=== PATIENT | female | born 1970 | race Caucasian/White ===

== ENCOUNTER → 2018-06-29 09:54 | Outpatient (CLI) | payer OTHER, SELFPAY ==
[2018-06-29 10:22] LABS: Add Manual Diff / Slide Review NO; Basophils Absolute Auto 100 /uL (0-100); Basophils Percent Auto 1.4 % (0-2); Eosinophils Absolute Auto 200 /uL (0-450); Eosinophils Percent Auto 4.1 % (2-4); Hematocrit 38.9 % (36-46); Hemoglobin 13.4 g/dL (12.0-16.0); Lymphocytes Absolute Auto 1200 /uL (1100-4500); Mean Corpuscular HGB Conc 34.3 % (30-36); Mean Corpuscular Hemoglobin 32.5 PG (26-34); Mean Corpuscular Volume 94.7 fL (80-100); Monocytes Absolute Auto 300 /uL (0-900); Monocytes Percent Auto 5.6 % (3-14); Neutrophils Absolute Auto 3200 /uL (1500-7000); Neutrophils Percent Auto 63.9 % (50-75); Platelet Count 235 X10^3/uL (150-400); Red Blood Cell Count 4.11 X10^6/uL (4.0-5.2)
[2018-06-29 10:38] LABS: Alanine Aminotransferase 56 IU/L (9-52); Albumin 4.8 g/dL (3.5-5.0); Albumin Globulin Ratio 1.4 (1.0-2.8); Alkaline Phosphatase 51 U/L (38-126); Aspartate Aminotransferase 78 IU/L (14-36); BUN Creatinine Ratio 16.4 (6-22); Bilirubin Total 1.5 mg/dL (0.2-1.3); Blood Urea Nitrogen 23 mg/dL (7-17); Calcium 10.8 mg/dL (8.4-10.2); Carbon Dioxide 34 mmol/L (22-32); Chloride 98 mmol/L (98-107); Estimated Glomerular Filt Rate 40.3 mL/min (>60); Globulin 3.5 g/dL (1.7-4.1); Glucose 87 mg/dL (70-100); HDL Cholesterol 86 mg/dL (40-60); HEMOLYSIS < 15 (0-50); Potassium 4.3 mmol/L (3.4-5.1); Sodium 138 mmol/L (137-145); Total Protein 8.3 g/dL (6.3-8.2); Triglycerides 110 mg/dL (35-150)
[2018-06-29 10:45] LABS: Cholesterol 360 mg/dL (140-199); LDL Cholesterol Calculated 252 mg/dL (<100)
== END ==
PROVIDERS: Visit Provider Family Medicine
DX: E07.9 Disorder of thyroid, unspecified (principal); I63.40 Cerebral infarction due to embolism of unspecified cerebral artery
CPT/HCPCS: 36415; 80053; 80061; 84443; 85025

== ENCOUNTER → 2018-09-28 16:13 | Outpatient (CLI) | payer OTHER, SELFPAY ==
[2018-09-28 18:32] LABS: Calcium 10.8 mg/dL (8.4-10.2)
[2018-09-28 18:51] LABS: Free T4, Direct Thyroxine 0.87 ng/dL (0.78-2.19)
[2018-09-28 19:05] LABS: Thyroid Stimulating Hormone 0.06 uIU/mL (0.47-4.68)
[2018-10-01 17:39] LABS: Parathyroid Hormone Int 34 pg/mL (14-64)
== END ==
PROVIDERS: Visit Provider Family Medicine
DX: E83.52 Hypercalcemia (principal); E07.9 Disorder of thyroid, unspecified
CPT/HCPCS: 36415; 82310; 83970; 84439; 84443

== ENCOUNTER → 2019-06-19 13:16 | Outpatient (CLI) | payer OTHER, SELFPAY ==
[2019-06-22 14:47] LABS: Calcium 10.9 mg/dL (8.6-10.2); Parathyroid Hormone, Intact 116 pg/mL (14-64)
== END ==
PROVIDERS: Visit Provider Family Medicine
DX: E83.52 Hypercalcemia (principal); E07.9 Disorder of thyroid, unspecified
CPT/HCPCS: 36415; 82310; 83970; 84443

== ENCOUNTER → 2019-08-11 11:29 | Outpatient (CLI) | payer OTHER, SELFPAY | PROVIDERS: Referring Provider Family Medicine; Visit Provider Family Medicine | DX: E07.9 Disorder of thyroid, unspecified (principal); E83.52 Hypercalcemia; Z90.09 Acquired absence of other part of head and neck; E21.3 Hyperparathyroidism, unspecified | CPT/HCPCS: 36415; 84443 ==

== ENCOUNTER → 2019-08-16 10:20 | Outpatient (CLI) | payer OTHER, SELFPAY ==
[2019-08-16 11:57] LABS: Calcium 24 Hour Urine 287 mg/day (100-300); Calcium Urine Random 19.8 mg/dL; Collection Time Urine 24 Hours; Total Volume Urine 1450 mL
== END ==
PROVIDERS: PCP Family Medicine; Referring Provider Family Medicine; Visit Provider Family Medicine
DX: E83.52 Hypercalcemia (principal); Z90.09 Acquired absence of other part of head and neck; E21.3 Hyperparathyroidism, unspecified
CPT/HCPCS: 82340

== ENCOUNTER 2020-05-28 15:36 | Emergency (ER) | payer OTHER, SELFPAY ==
[2020-05-28 15:41] VITALS: BP 159/88; PULSE 89; RESP 16; TEMP 36.4; O2SAT 98; BMI 25.8
[2020-05-28 16:01] LABS: COVID19 -Nasal RAPID Negative (Negative)
--- NOTE | 2020-05-28 16:15 | ED.RECABL ---
HPI - Recheck/Abnormal Lab/Rx General Chief Complaint: Recheck/Abnormal Lab/Rx Stated Complaint: wants COVID test - works with someone who is + Time Seen by Provider: 05/28/20 15:42 Source: patient Mode of arrival: Ambulatory Limitations: no limitations History of Present Illness HPI narrative: Patient is a 49-year-old female who presents with wanting COVID-19 test. Her co-worker at [employer] tested positive just a few hours ago. Currently the patient has 0 symptoms at. She denies any fever chills loss of taste or smell cough or shortness of breath. Related Data Home Medications Medication Instructions Recorded Confirmed aspirin 81 mg tablet,delayed 81 mg PO DAILY 08/09/18 12/07/18 release atorvastatin 20 mg tablet 20 mg PO DAILY 08/09/18 12/07/18 Respironics Dreamstation CPAP #1 ea 12/07/18 12/07/18 levothyroxine 137 mcg capsule 137 mcg PO DAILY 12/07/18 12/07/18 Allergies Allergy/AdvReac Type Severity Reaction Status Date / Time No Known Drug Allergies Allergy Unverified 12/07/18 10:08 Review of Systems Review of Systems Narrative: GENERAL: Denies chills, fatigue, malaise, fever, sweats, travel HEENT: Denies sinus pain, ear pain, sore throat, difficulty swallowing, neck pain RESPIRATORY: Denies dyspnea, cough, wheezing, hemoptysis, sputum. CARDIOVASCULAR: Denies chest pain, palpitations, orthopnea, edema GASTROINTESTINAL: Denies nausea, vomiting, abdominal pain, diarrhea, constipation, melena. : Denies dysuria, frequency, incontinence, hematuria, urinary retention, flank pain. MUSCULOSKELETAL: Denies weakness, joint pain, or bony pain SKIN: No rash, no erythema, no pruritus NEUROLOGIC: Denies weakness, dizziness, headache, numbness, change in speech, confusion PSYCHIATRIC: No concerning psychosocial issues. 12 point review of systems is negative except for those stated above and HPI Patient History Medical History CVA (cerebral vascular accident) Fatigue Hypothyroid Insomnia Obstructive sleep apnea of adult Snoring Social History Smoking Status: Former smoker Smoking Status: Former smoker Substance Use Type: does not use Exam Initial Vital Signs Initial Vital Signs: Vital Signs Temperature 97.6 F 05/28/20 15:41 Pulse Rate 89 05/28/20 15:41 Respiratory Rate 16 05/28/20 15:41 Blood Pressure 159/88 H 05/28/20 15:41 Pulse Oximetry 98 12 15:41 GENERAL: Well-appearing, well-nourished and in no acute distress. HEENT: Head atraumatic,EOMI, pupils reactive, face symmetric, moist mucous membranes CARDIOVASCULAR: Regular rate and rhythm without murmurs, rubs or gallops. RESPIRATORY: Breath sounds equal bilaterally, no wheezes rales or rhonchi. EXTREMITIES: Normal range of motion, no clubbing or edema. Neurovascularly intact NEUROLOGICAL: Alert and oriented x4.Normal gait and speech. Cranial nerves II through XII grossly intact. SKIN: Warm, dry, no laceration, no petechiae, no rashes or lesions. Course Orders Ordered: ED Orders 05/28/20 15:43 COVID19 Stat Vital Signs Vital signs: Vital Signs - 8 hr 05/28/20 15:41 Temperature 97.6 F Pulse Rate 89 Respiratory Rate 16 Blood Pressure 159/88 H Pulse Oximetry 98 MDM - Recheck/Abnormal Lab/Rx Lab Data Labs: Lab Results 05/28/20 Range/Units 15:43 COVID-19 PCR Negative (Negative) Discharge Plan Departure Patient Disposition: Home Clinical Impression: Close exposure to COVID-19 virus Activity Restrictions/Additional Instructions: * diagnosis with COVID 19 exposure Please follow the simple the guidelines as directed below Recommend that you by a home pulse oximeter to help monitor your oxygen. Oxygen levels of go below 88% please come to the ED. Return to the ER if you should have increasing shortness of breath, low oxygen Who needs quarantine? People who have been in close contact with someone who has COVID-19?excluding people who have had COVID-19 within the past 3 months. People who have tested positive for COVID-19 do not need to quarantine or get tested again for up to 3 months as long as they do not develop symptoms again. People who develop symptoms again within 3 months of their first bout of COVID-19 may need to be tested again if there is no other cause identified for their symptoms. What counts as close contact? You were within 6 feet of someone who has COVID-19 for a total of 15 minutes or more You provided care at home to someone who is sick with COVID-19 You had direct physical contact with the person (hugged or kissed them) You shared eating or drinking utensils They sneezed, coughed, or somehow got respiratory droplets on you Steps to take Stay home and monitor your health Stay home for 14 days after your last contact with a person who has COVID-19. Watch for fever (100.4?F), cough, shortness of breath, or other symptoms of COVID-19 If possible, stay away from others, especially people who are at higher risk for getting very sick from COVID-19 Prescriptions: No Action atorvastatin 20 mg tablet 20 mg PO DAILY RF: 0 aspirin [Adult Low Dose Aspirin] 81 mg tablet,delayed release (DR/EC) 81 mg PO DAILY RF: 0 levothyroxine 137 mcg capsule 137 mcg PO DAILY RF: 0 (DME) Respironics Dreamstation CPAP Qty: 1 RF: 0 Referrals: Jazmin Callahan DO [Primary Care Provider] -
== END 2020-05-28 16:50 | disposition home or self-care (01) ==
PROVIDERS: Emergency Provider Emergency Medicine; PCP Family Medicine
DX: Z20.828 Contact with and (suspected) exposure to other viral communicable diseases (principal); E03.9 Hypothyroidism, unspecified
CPT/HCPCS: 87635; 99281; 99282

== ENCOUNTER → 2022-04-11 09:15 | Outpatient (CLI) | payer OTHER, SELFPAY ==
--- NOTE | 2022-04-11 09:16 | DI.MRI.S_ITS ---
PROCEDURE: MR PELVIS WO/W CON INDICATIONS: Vaginal mass TECHNIQUE: Coronal HASTE, sagittal breath-hold T2 FSE; axial T1 FSE with and without fat saturation through the pelvis. Optional long- and short-axis uterine nonbreath-hold T2 FSE through the uterus. Sagittal or axial dynamic VIBE during administration of contrast. Post-contrast axial or coronal VIBE/2-D FLASH with fat saturation from the iliac crests to the symphysis. Optional diffusion weighted imaging and ADC may be performed. COMPARISON: None. FINDINGS: Image quality: Excellent. Uterus: Uterus is normal in size. Endometrium is normal in thickness. Intrauterine device noted appropriate position. There is a heterogenous enhancing mass lesion centered on the vaginal canal measuring 4.0 x 4.7 by 6.9 cm. Mass is not appear to involve the uterine cervix. There is no clear separation between the mass and the adjacent rectum. Adnexa: Nonvisualized Urinary system: Bladder wall is normal in thickness. Distal ureters are non distended. Urethra appears normal in morphology. Nodes and vessels: No pelvic or inguinal adenopathy by size criteria. Iliac vessels are normal in size. Bowel and peritoneum: As above. No upstream fecal retention. Bones: Marrow demonstrates normal overall signal. IMPRESSION: 1. Heterogenous enhancing mass lesion centered on the vaginal canal with probable invasion of the adjacent rectum. No local adenopathy. Dictated by: Chris Shelby M.D. on 04/11/2022 at 10:29 Approved by: Chris Shelby M.D. on 04/11/2022 at 10:37
== END ==
PROVIDERS: PCP Family Medicine; Referring Provider Obstetrics & Gynecology; Visit Provider Obstetrics & Gynecology
DX: N89.8 Other specified noninflammatory disorders of vagina (principal)
CPT/HCPCS: 72197

== ENCOUNTER → 2022-04-27 09:29 | Outpatient (CLI) | payer OTHER, SELFPAY ==
[2022-04-27 11:41] LABS: COVID19 -Nasal RAPID Negative (Negative)
== END ==
PROVIDERS: Visit Provider Surgery
DX: Z20.822 Contact with and (suspected) exposure to COVID-19 (principal); Z01.812 Encounter for preprocedural laboratory examination
CPT/HCPCS: 87635; C9803

== ENCOUNTER 2022-04-28 12:45 | Day surgery (SDC) | payer OTHER, SELFPAY ==
[2022-04-28] VITALS (8 sets, daily range): BP systolic 81–133; BP diastolic 52–96; PULSE 53–92; RESP 13–22; TEMP 36.2–36.9; O2SAT 95–99; BMI 25.8
--- NOTE | 2022-04-28 | PATH_ITS ---
[facility] Accession Number: [id number] No. of containers..02 Tissue . 01 Material submitted: . PART A: vagina - VAGINA PART B: rectum - RECTAL MASS . 01 Diagnosis: A. Vagina, Biopsy: Squamous mucosa with active inflammation. No evidence of neoplasm. . B. Rectal Mass, Biopsy: Invasive squamous cell carcinoma, well differentiated, arising in high-grade squamous intraepithelial lesion (AIN-3). Focally suspicious for lymphovascular invasion. Squamous cell carcinoma approximates the deep biopsy edge. MRV 05/04/2022 1719 Local . 01 Comment: As part of routine corporate quality engineer, Dr. Ramos has reviewed this case and agrees with the diagnosis of invasive squamous cell carcinoma. . Dr. Farley confirmed receipt of a malignant diagnosis via a voicemail to Dr. Odell on 05/01/2022. . 01 Electronically signed: . Hernandez Odell MD, PhD, Pathologist NPI- [id number] . 01 Gross description: . A. Received in formalin and labeled vagina, are multiple fragments of broussard soft tissue measuring 0.5 x 0.4 x 0.1 cm, in aggregate. All fragments are inked and totally submitted in cassette A1. B. Received in formalin and labeled rectal mass, is one fragment of broussard soft tissue measuring 2.0 x 1.7 x 0.3 cm. It is inked, serially sectioned, and entirely submitted in cassettes B1-B2. ([id number]) /CATHIE 04/29/2022 1038 Local . 01 Pathologist provided ICD-10: C21.0 . 01 CPT . 516024, 101386 Specimen Comment: A courtesy copy of this report has been sent to [phone] Performed at: 01 [facility] [address], [place], [place] [id number] MD Lazarus Berry MD Phone: [phone]
--- NOTE | 2022-04-28 13:01 | P.HP_ITS ---
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 Since January 2022 she is been experiencing episodes of constipation and occasional blood per rectum. She is never had a previous colonoscopy. No personal or family history of intestinal malignancy. She is had a intentional weight loss in effort to avoid constipation. MRI April 2022 abdomen pelvis IMPRESSION: 1. Heterogenous enhancing mass lesion centered on the vaginal canal with probable invasion of the adjacent rectum. No local adenopathy. Patient History Medical History CVA (cerebral vascular accident) Fatigue Hypothyroid Insomnia Obstructive sleep apnea of adult Snoring Family & Social History Tobacco & Substance use: Smoking Status Former smoker Substance Use Type does not use Meds Home Medications and Allergies Home Medications Medication Instructions Recorded Confirmed Type aspirin 81 mg tablet,delayed 81 mg PO DAILY 08/09/18 04/28/22 History release (Adult Low Dose Aspirin) Respironics Dreamstation CPAP #1 ea 12/07/18 04/22/22 History levonorgestrel 20 mcg/24 hours (7 intrauterine 04/22/22 04/22/22 History yrs) 52 mg intrauterine device (Mirena) levothyroxine 175 mcg tablet 175 mcg PO DAILY 04/28/22 04/28/22 History Allergies Allergy/AdvReac Type Severity Reaction Status Date / Time No Known Drug Allergies Allergy Verified 04/28/22 13:50 Exam Narrative Exam Narrative: General adult woman alert oriented no acute distress Abdomen soft nontender nondistended Assessment & Plan Assessment and plan (1) Rectal mass: Status: Acute Assessment & Plan narrative: 51-year-old woman with a rectal mass here for diagnostic colonoscopy. Pelvic MRI demonstrates a 7 cm enhancing mass on the anterior rectal wall. Overview of the procedure was discussed with the patient. Operative risks including bleeding, missed diagnosis, intestinal perforation were discussed. Her questions have been answered and she is in agreement with this plan Time Spent With Patient Critical Care time: I spent a total of [] minutes of critical care time on this patient's care today; this time is exclusive of procedural time.
[2022-04-28] MEDS: LACTATED RINGERS 1,000 ML 200 ML IV (14:03)
--- NOTE | 2022-04-28 15:33 | P.OP.COLON_ITS ---
Operative Date/Time/Diagnoses Date of procedure: 04/28/22 Time of procedure: 15:33 Pre-op diagnosis: Rectal mass Post-op diagnosis: same Procedure & Clinicians Study performed: Colonoscopy Same procedure as scheduled: Yes Indications: 51-year-old woman with rectal bleeding and constipation found to have rectal mass on pelvic MRI here for diagnostic colonoscopy Surgeon: Tani Farley Procedure Notes Procedure in detail: The history and physical was performed/updated and the patient is ASA class is 2. The procedure was discussed in detail with the patient. Potential risks complications including infection, bleeding, missed diagnosis, perforation, need for surgery, and were explained. Their questions were answered and informed consent was obtained. Patient was brought to the procedure room and placed standard monitoring equ ipment. The patient's vital signs were monitored continuously throughout the entire procedure. Prior to starting time-out was performed. The patient was placed in the left lateral recumbent position. Procedural sedation was administered by anesthesia. A rectal examination was performed which demonstrated a large firm fixed mass 2 cm from the anal verge on the anterior wall of the rectum. The mass extended through the wall of the vagina. The scope was 1st placed into the vagina and mass effect could be seen there was also areas of erythema within the vaginal mucosa multiple biopsies of with the vagina were performed. The scope was then next placed into the rectum which demonstrated at least 5 cm friable mass appears to be above the dentate line on the anterior wall of the rectum. Multiple biopsies were taken with hot snare. The colonoscope was then advanced to the cecum which was identified by the appendiceal orifice and the ileocecal valve. The scope was then carefully withdrawn examining the mucosal folds. The remainder of the colonoscopy was normal. The patient tolerated the procedure well. They will be discharged once criteria are met. The prep was of good/excellent quality. The withdrawl time was 15 minutes. Specimen(s): other (Vaginal biopsy, rectal mass) Complications: none Impression: Rectal mass concerning for carcinoma Post-procedure Plan for aftercare: Follow-up in surgical clinic 2 weeks time for review of surgical pathology Disposition: same day surgery
== END 2022-04-28 16:14 | disposition home or self-care (01) ==
PROVIDERS: Referring Provider Surgery; Visit Provider Surgery
PROC: 0DJD8ZZ Inspection of Lower Intestinal Tract, Via Natural or Artificial Opening Endoscopic (ICD-10-PCS; CPT 45378; principal; 2022-04-28 13:45)
DX: C21.0 Malignant neoplasm of anus, unspecified (principal); K59.00 Constipation, unspecified; G47.33 Obstructive sleep apnea (adult) (pediatric); E03.9 Hypothyroidism, unspecified; R53.83 Other fatigue; Z86.73 Personal history of transient ischemic attack (TIA), and cerebral infarction without residual deficits
CPT/HCPCS: 45385; 57421; J2704

== ENCOUNTER → 2022-05-07 14:40 | Outpatient (CLI) | payer OTHER, SELFPAY ==
[2022-05-07 15:50] LABS: COVID19 -Nasal RAPID Negative (Negative)
== END ==
PROVIDERS: Visit Provider Surgery
DX: Z01.812 Encounter for preprocedural laboratory examination (principal); Z20.822 Contact with and (suspected) exposure to COVID-19
CPT/HCPCS: 87635; C9803

== ENCOUNTER → 2022-05-09 10:46 | Outpatient (CLI) | payer OTHER, SELFPAY ==
--- NOTE | 2022-05-09 10:47 | DI.CT.S_ITS ---
PROCEDURE: CT CHEST W CON INDICATIONS: staging anal squamous cell carcinoma TECHNIQUE: After the administration of intravenous contrast, 5 mm thick sections acquired from the pulmonary apices to the posterior costophrenic angles. 1 mm axial lung, 5 mm thick coronal and sagittal reformats and 7 mm axial MIP were acquired. For radiation dose reduction, the following was used: automated exposure control, adjustment of mA and/or kV according to patient size. COMPARISON: None. FINDINGS: Image quality: Excellent. Lungs and pleura: No acute air space opacities. No pleural effusions or pneumothorax. Central and peripheral airways are patent and normal in caliber. Mediastinum: Heart size is normal. No pericardial effusion. An atrial closure device is incidentally noted. No mediastinal or hilar adenopathy by size criteria. Thoracic aorta and central pulmonary arteries are normal in size. Esophagus is normal in caliber. There is a small to moderate hiatal hernia. Bones and chest wall: No suspicious bony lesions. No vertebral body compression fractures. No axillary or supraclavicular adenopathy by size criteria. Thyroid gland is small in size. Abdomen: Visualized upper abdominal solid organs appear normal. Upper abdominal bowel loops are normal in caliber. IMPRESSION: No findings of metastatic disease are seen. No pulmonary nodules are seen. No suspicious bony lesions are seen. No enlarged lymph nodes are seen. Additional findings: Small thyroid size, please correlate with patient history Atrial closure device Small to moderate hiatal hernia Dictated by: Shaun Amaral M.D. on 05/09/2022 at 10:34 Approved by: Shaun Amaral M.D. on 05/09/2022 at 10:37
== END ==
PROVIDERS: Referring Provider Surgery; Visit Provider Surgery
DX: C21.0 Malignant neoplasm of anus, unspecified (principal); K44.9 Diaphragmatic hernia without obstruction or gangrene
CPT/HCPCS: 71260; Q9967

== ENCOUNTER → 2022-05-14 10:56 | Outpatient (CLI) | payer OTHER, SELFPAY ==
[2022-05-14 12:58] LABS: COVID19 -Nasal RAPID Negative (Negative)
== END ==
PROVIDERS: Visit Provider Surgery
DX: Z01.812 Encounter for preprocedural laboratory examination (principal); Z20.822 Contact with and (suspected) exposure to COVID-19
CPT/HCPCS: 87635; C9803

== ENCOUNTER 2022-05-15 13:57 | Day surgery (SDC) | payer OTHER, SELFPAY ==
[2022-05-07 14:52] VITALS: BMI 25.8
[2022-05-15] VITALS (7 sets, daily range): BP systolic 125–157; BP diastolic 77–101; PULSE 51–551; RESP 14–21; TEMP 36.1–36.7; O2SAT 96–99; BMI 25.8
--- NOTE | 2022-05-15 | DI.RAD.S_ITS ---
PROCEDURE: XR CHEST 1V INDICATIONS: PORTACATH TECHNIQUE: One view of the chest was acquired. COMPARISON: [facility], CT, CT CHEST W CON, 05/09/2022, 10:58. FINDINGS: Surgical changes and devices: Right chest wall port appears in good position. The tip is in the high SVC. Lungs and pleura: Increased perihilar airspace opacities are nonspecific but were not noted on recent CT of the chest and could represent volume overload. Mediastinum: Mediastinal contours appear normal. Heart size is normal. Bones and chest wall: No suspicious bony lesions. Overlying soft tissues appear unremarkable. IMPRESSION: 1. Right chest wall port with the tip in the high SVC. 2. Increased perihilar airspace opacities are nonspecific but were not noted on recent CT and could represent volume overload. Dictated by: Tim Pratt M.D. on 05/16/2022 at 10:45 Approved by: Tim Pratt M.D. on 05/16/2022 at 10:46
[2022-05-15] MEDS: LACTATED RINGERS 1,000 ML 100 ML IV (15:07)
--- NOTE | 2022-05-15 16:46 | PM.PREOP ---
Pre-operative Note Interval Note History & Physical reviewed/Exam performed by Physician: Yes Changes to H&P: No
--- NOTE | 2022-05-15 16:46 | PM.OP.1 ---
Operative Date/Time/Diagnoses Date of procedure: 05/15/22 Time of procedure: 16:46 Pre-op diagnosis: Anal squamous cell carcinoma Post-op diagnosis: same Procedure & Clinicians Procedure: Port-A-Cath insertion Same procedure as scheduled: Yes Indications: Anal squamous cell carcinoma with need for long-term venous access Surgeon: Tani Farley Click Yes if Unassisted: Yes Anesthesia Type: General Operative Notes Findings: Tip of the catheter is within the SVC Specimen(s): none sent Estimated Blood Loss (mL): 20 Procedure in detail: Patient was brought to the operating room placed supine on table. Bilateral lower extremity compressive devices were applied. General anesthesia was induced and he was intubated with an LMA. She was then prepped and draped in usual sterile fashion. Time-out was performed ensure the correct patient procedure necessary equipment within the operating room. She received 2 g of Ancef prior to incision. Under ultrasound guidance the right internal jugular vein was accessed under direct visualization. The guidewire was then threaded through the needle. Its placement was then confirmed using fluoroscopy. The dilator was then placed over the guidewire. The catheter was then inserted through the sheath. Placement was again confirmed with fluoroscopy. A subcutaneous pocket was made in the right chest wall. The tunneler device was used to move the catheter from the neck to the chest pocket. The port was attached after it was primed with heparined saline. The port was tested to ensure that it flushed easily and had good blood return. At this point I was notified that the Port-A-Cath that had been placed was by approximately 10 days. I made the decision to remove the previously placed port and associated catheter. Then the right subclavian vein was entered with the finder needle. A guidewire was then placed placed through the needle and its position was confirmed with fluoroscopy. Vessel was then dilated and a catheter was advanced through the dilator. The catheter was then slowly withdrawn until the tip projected over the SVC. Catheter was then attached to the port, port was tested it flushed easily and had good blood return. The port was then secured to the underlying fascia using interupted 0 Prolene suture. Hemostasis was achieved. The wound was irrigated with sterile saline. The subcutaneous tissues were reapproximated with the 3 0 Vicryl and then skin closed with 4-0 Monocryl. The skin was sealed with Dermabond. Patient tolerated procedure well. The sponge and instrument count at the end operation was correct. Patient emerged from general anesthesia was extubated and taken to the postoperative care unit in stable condition Complications: none Post-operative Condition: stable Disposition: same day surgery
[2022-05-15] MEDS: CEFAZOLIN 2 GM/100 ML PREMIX 100 ML IV (17:08)
--- NOTE | 2022-05-15 17:10 | SUR.OPER ---
Supine on padded OR bed, head on pillow, arms padded and tucked at sides, legs uncrossed, safety belt at thigh, tape over blanket over lower legs .
[2022-05-15] MEDS: HEPARIN 5,000 UNIT, SODIUM CHLORIDE 0.9% 50 ML IV (17:18)
[2022-05-15] MEDS: BUPIVACAINE 0.5% (PF) VIAL 30 ML INJ (17:21)
[2022-05-15] MEDS: OXYCODONE/ACETAMINOPHEN 5/325 TABLET 1 TAB PO (18:15)
== END 2022-05-15 18:57 | disposition home or self-care (01) ==
PROVIDERS: Referring Provider Surgery; Visit Provider Surgery
PROC: (CPT 36561; principal; 2022-05-15 15:30)
DX: C21.0 Malignant neoplasm of anus, unspecified (principal)
CPT/HCPCS: 36561; 71045; 76000; J0690; J1100; J1644; J1885; J2250; J2405; J2704; J3010

== ENCOUNTER → 2022-09-04 10:17 | Outpatient (CLI) | payer OTHER, SELFPAY ==
--- NOTE | 2022-09-04 10:21 | DI.CT.S_ITS ---
PROCEDURE: CT SOFT TISSUE NECK WO/W CON INDICATIONS: hyperparathyroidism TECHNIQUE: Before and after the administration of intravenous contrast, 2.0 mm axial sections acquired through the neck and down to the say. Additional 2.0 mm coronal and sagittal reformats were generated of the contrast enhanced images. For radiation dose reduction, the following was used: automated exposure control. COMPARISON: [place], [place], [place] PET CT FUSION WHOLE BODY, 05/20/2022, 9:32. FINDINGS: In the posterior and inferior right thyroid lobe there is an approximately 0.9 x 0.8 cm soft tissue density nodule, which relative to background thyroid parenchyma this nodule demonstrates low non-contrast attenuation, arterial phase hyperenhancement, and rapid venous phase washout. Findings are consistent with a parathyroid adenoma. No additional parathyroid adenoma identified. No cervical lymphadenopathy. Lung apices clear. Upper mediastinum unremarkable. No suspicious lytic or blastic osseous lesion. Parotid and submandibular glands normal. IMPRESSION: Right parathyroid adenoma. Dictated by: Man Raines M.D. on 09/04/2022 at 13:49 Approved by: Man Raines M.D. on 09/04/2022 at 13:53
== END ==
PROVIDERS: Referring Provider Internal Medicine Hematology & Oncology; Visit Provider Internal Medicine Hematology & Oncology
DX: D35.1 Benign neoplasm of parathyroid gland (principal); E04.1 Nontoxic single thyroid nodule; E83.52 Hypercalcemia
CPT/HCPCS: 70492; Q9967

== ENCOUNTER 2022-09-29 14:27 | Day surgery (SDC) | payer OTHER, SELFPAY ==
--- NOTE | 2022-09-29 15:03 | SUR.PREOP ---
Patient has cottage cheese at 11am. After discussion with Dr. Farley it was decided to cancel today and reschedule.
== END 2022-09-29 14:30 | disposition home or self-care (01) ==
PROVIDERS: Referring Provider Surgery; Visit Provider Surgery
DX: Z53.09 Procedure and treatment not carried out because of other contraindication (principal)

== ENCOUNTER 2022-10-20 14:05 | Day surgery (SDC) | payer OTHER, SELFPAY ==
--- NOTE | 2022-10-20 | PATH_ITS ---
[facility] Accession Number: [id number] No. of containers..01 Tissue . 01 Material submitted: . anal canal - ANAL CANAL . 01 Diagnosis: Anal Canal, Biopsy: Anorectal mucosa with features suggestive of mucosal prolapse. Negative for dysplasia and malignancy. Additional levels were examined. [facility] 10/27/2022 0853 Local . 01 Electronically signed: . Areli Ramos MD, Pathologist NPI- [id number] . 01 Gross description: . The specimen is received in formalin labeled with the patient's name, , and anal canal, and consists of multiple broussard soft tissue fragments aggregating to 0.8 x 0.3 x 0.1 cm. The specimen is filtered into a biopsy bag and submitted entirely in cassette A1. ([id number]) /[facility] 10/24/2022 1637 Local . 01 Pathologist provided ICD-10: K62.89 . 01 CPT . 860023 Specimen Comment: A courtesy copy of this report has been sent to [phone] Performed at: 01 [facility] [address] [place] [address], [place], [place] [id number] MD Lazarus Berry MD Phone: [phone]
[2022-10-20 14:19] VITALS: BP 133/83; PULSE 88; RESP 16; TEMP 36.1; O2SAT 100; BMI 60.5
[2022-10-20] MEDS: LACTATED RINGERS 1,000 ML 42 ML IV (14:31)
--- NOTE | 2022-10-20 15:07 | PM.HP.1 ---
History of Present Illness History of Present Illness Date Patient Seen: 10/20/22 Time Patient Seen: 15:07 Chief complaint: Colonoscopy Narrative: 52-year-old woman history of anal squamous cell carcinoma status post chemo and radiation completed July 2022. She is here for surveillance endoscopy. Plan is to perform in the endoscopy suite under sedation because she has significant discomfort with examination of the anus following radiation therapy. [facility] Medical History (Updated 10/08/22 @ 12:44 by Tani Farley MD) Anxiety CVA (cerebral vascular accident) Fatigue GERD (gastroesophageal reflux disease) Headache History of blood clots Hypothyroid Insomnia Obstructive sleep apnea of adult PFO (patent foramen ovale) Snoring Surgical History (Updated 05/21/22 @ 15:48 by Ramon Maya MD) H/O LEEP S/P patent foramen ovale closure Family History (Updated 05/21/22 @ 15:46 by Ramon Maya MD) Unknown Cancer of kidney Grandmother Breast cancer Social History household members: significant other Smoking Status: Former smoker alcohol intake: current substance use type: does not use Meds Home Medications and Allergies Home Medications Medication Instructions Recorded Confirmed Type levonorgestrel 21 mcg/24 hours (8 1 device intrauterine DAILY 04/22/22 10/20/22 History yrs) 52 mg intrauterine device (Mirena) levothyroxine 175 mcg tablet 175 mcg PO DAILY 04/28/22 10/20/22 History acetaminophen 325 mg capsule 650 mg PO QID PRN pain #60 caps 05/15/22 10/08/22 Rx (Tylenol) Allergies Allergy/AdvReac Type Severity Reaction Status Date / Time No Known Drug Allergies Allergy Verified 10/20/22 14:14 Exam Vital Signs (past 8 hours): - 10/20/22 14:19 Temperature 96.9 F L Pulse Rate 88 Respiratory Rate 16 Blood Pressure 133/83 Pulse Oximetry 100 Oxygen Delivery Method Room Air Oxygen Delivery Method Room Air Narrative Exam Narrative: General adult woman alert oriented no acute distress Abdomen soft nontender nondistended Assessment & Plan Assessment and plan (1) Anal squamous cell carcinoma: Status: Chronic Assessment & Plan narrative: 52-year-old woman with anal squamous cell carcinoma cT3/4, cN0, cM0 here for surveillance endoscopy following completion of chemo radiation. Overview of the procedure was discussed with the patient. Procedural risks including hemorrhage, intestinal injury were discussed. Questions have been answered she is in agreement with this plan.
--- NOTE | 2022-10-20 15:30 | PM.OP.COLON ---
Operative Date/Time/Diagnoses Date of procedure: 10/20/22 Time of procedure: 15:30 Pre-op diagnosis: History anal squamous cell carcinoma Post-op diagnosis: same Procedure & Clinicians Study performed: Endoscopy with biopsy under sedation Same procedure as scheduled: Yes Indications: 52-year-old woman with a history of anal squamous cell carcinoma who has completed chemoradiation July 2022. She is here for surveillance anoscopy which could not be performed in office due to pain. Procedure Notes Procedure in detail: Patient was brought into the operating room. Time-out was performed.. Anesthesia was induced. She was then placed into the left lateral decubitus position. Internal examination demonstrated a slight tissue irregularity of the left lateral wall within the anal canal. An EGD scope was inserted into the anal canal. The scope was advanced forward to the level of the sigmoid colon. The scope was then carefully withdrawn. Scope was retroflexed within the rectum which demonstrated a lesion below the dentate line which was approximately 5 mm in maximal diameter and located on the left lateral wall. Lesion was mildly erythematous and slightly raised it was within a zone that appeared to have been previously radiated. Biopsies were performed with forceps in the lesion was ultimately removed in its entirety. She tolerated the procedure well and was transferred to recovery in stable condition. Specimen(s): other (Anal lesion. History of anal squamous cell carcinoma.) Post-procedure Recommendations: High fiber diet Plan for aftercare: Will notify with pathology findings Disposition: same day surgery
[2022-10-20 15:31] VITALS: BP 92/47; PULSE 80; RESP 15; TEMP 36.6; O2SAT 96
[2022-10-20 15:35] VITALS: BP 107/71; PULSE 92; RESP 20; O2SAT 97
[2022-10-20 15:41] VITALS: BP 119/83; PULSE 80; RESP 24; TEMP 36.7; O2SAT 98
[2022-10-20 15:43] VITALS: BP 115/82; PULSE 73; RESP 18; O2SAT 98
== END 2022-10-20 15:56 | disposition home or self-care (01) ==
PROVIDERS: Referring Provider Surgery; Visit Provider Surgery
PROC: 0DJD8ZZ Inspection of Lower Intestinal Tract, Via Natural or Artificial Opening Endoscopic (ICD-10-PCS; CPT 45378; principal; 2022-10-20 15:00)
DX: Z85.048 Personal history of other malignant neoplasm of rectum, rectosigmoid junction, and anus (principal)
CPT/HCPCS: 46606; J2704

== ENCOUNTER 2023-05-11 09:15 | Day surgery (SDC) | payer OTHER, SELFPAY ==
--- NOTE | 2023-05-11 | PATH_ITS ---
[facility] Accession Number: [id number] No. of containers..01 Tissue . 01 Material submitted: . anus - ANUS BIOPSY . 01 Diagnosis: Anus, Biopsy: Fragments of hyperkeratotic squamous mucosa with compact orthokeratosis and prominent granular cell layer. Negative for specific features of radiation atypia. Negative for fungal organisms. No evidence of neoplasia. MRV 05/24/2023 1521 Local . 01 Electronically signed: . Areli Ramos MD, Pathologist NPI- [id number] . 01 Gross description: . ANUS BIOPSY: Received in formalin are 2 fragment(s) of broussard, soft tissue measuring 0.3 x 0.2 x 0.1 cm to 0.4 x 0.1 x 0.1 cm submitted entirely in 1 cassette(s) /VIOLET 05/12/2023 1839 Local . 01 Microscopic: . A p16 immunohistochemical stain was performed to evaluate for immunoreactivity and is negative for block nuclear and cytoplasmic reactivity. This mitigates against high-grade squamous intraepithelial lesion. The control stain showed appropriate reactivity. A PAS stain wsa performed to evaluate for fungal organisms and is negative. The control stain showed appropriate reactivity. . * This test was developed and its performance characteristics determined by [facility]. It has not been cleared or approved by the U.S. Food and Drug Administration. The FDA has determined that such clearance or approval is not necessary. This test is used for clinical purposes. It should not be regarded as investigational or for research. . 01 Pathologist provided ICD-10: Z85.048 . 01 CPT . 477410, U03904, 961590 Specimen Comment: A courtesy copy of this report has been sent to [phone] Performed at: 01 [facility] [address], [place], [place] [id number] MD Lazarus Berry MD Phone: [phone]
[2023-05-11 09:49] VITALS: BMI 27.3
[2023-05-11 09:59] VITALS: BP 121/84; PULSE 66; RESP 12; TEMP 36.1; O2SAT 98
[2023-05-11] MEDS: LACTATED RINGERS 1,000 ML 42 ML IV (10:04)
--- NOTE | 2023-05-11 10:53 | PM.HP.1 ---
History of Present Illness History of Present Illness Date Patient Seen: 05/11/23 Time Patient Seen: 10:53 Chief complaint: Colonoscopy Narrative: 52-year-old woman history of anal squamous cell carcinoma status post chemo and radiation completed July 2022. She is here for surveillance endoscopy. She had significant discomfort with examination of the anus in office as a result of radiation. Plan is to perform this in the endoscopy room today.. PFSH Medical History PFO (patent foramen ovale) Headache GERD (gastroesophageal reflux disease) History of blood clots Anxiety Hypothyroid CVA (cerebral vascular accident) Fatigue Insomnia Snoring Obstructive sleep apnea of adult Surgical History H/O LEEP S/P patent foramen ovale closure Family History Unknown Cancer of kidney Grandmother Breast cancer Social History household members: significant other Smoking Status: Former smoker alcohol intake: current substance use type: does not use Meds Home Medications and Allergies Home Medications Medication Instructions Recorded Confirmed Type levonorgestrel 21 mcg/24 hours (8 1 device intrauterine DAILY 04/22/22 05/11/23 History yrs) 52 mg intrauterine device (Mirena) levothyroxine 175 mcg tablet 175 mcg PO DAILY 04/28/22 05/11/23 History acetaminophen 325 mg capsule 650 mg (2 x 325 mg) PO QID PRN 05/15/22 05/11/23 Rx (Tylenol) pain #60 caps Allergies Allergy/AdvReac Type Severity Reaction Status Date / Time No Known Drug Allergies Allergy Verified 05/11/23 09:48 Exam Vital Signs (past 8 hours): - 05/11/23 09:59 Temperature 96.9 F L Pulse Rate 66 Respiratory Rate 12 Blood Pressure 121/84 Pulse Oximetry 98 Oxygen Delivery Method Room Air Oxygen Delivery Method Room Air Narrative Exam Narrative: General adult woman alert oriented no acute distress Chest nonlabored respiration Extremities warm well perfused Assessment & Plan Assessment and plan (1) Anal squamous cell carcinoma: Status: Chronic Assessment & Plan narrative: 52 y.o woman with hx of anal squamous cell carcinoma sp completed chemo/rad 2022 here for endoscopic surveillance. Overview of procedure discussed. Provides consent to proceed.
--- NOTE | 2023-05-11 11:12 | SUR.OPER ---
Patients glasses brought with patient to ENDO then to PACU
[2023-05-11 11:14] VITALS: BP 101/63; PULSE 74; RESP 15; TEMP 36.3; O2SAT 99
--- NOTE | 2023-05-11 11:18 | PM.OP.COLON ---
Operative Date/Time/Diagnoses Date of procedure: 05/11/23 Time of procedure: 11:18 Pre-op diagnosis: History of anal squamous cell carcinoma Post-op diagnosis: same Procedure & Clinicians Study performed: Flexible sigmoidoscopy Same procedure as scheduled: Yes Indications: 52-year-old woman history of anal squamous cell carcinoma status post chemo and radiation therapy completed 2022 here for interval surveillance. Surgeon: Tani Farley Procedure Notes Procedure in detail: The history and physical was performed/updated and the patient is ASA class is 2. The procedure was discussed in detail with the patient. Potential risks complications including infection, bleeding, missed diagnosis, perforation, need for surgery, and were explained. Their questions were answered and informed consent was obtained. Patient was brought to the procedure room and placed standard monitoring equipment. The patient's vital signs were monitored continuously throughout the entire procedure. Prior to starting time-out was performed. The patient was placed in the left lateral recumbent position. Procedural sedation was administered by anesthesia. Examination began with a thorough inspection of the perianal area which shows changes consistent with radiation but without evidence of fissures, fistulae, external hemorrhoids. The EGD scope was inserted into the anus which was quite narrow. 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 The scope was advanced to the level of the sigmoid colon without difficulty. The scope was then slowly withdrawn examining the mucosa. The scope was retroflexed within the rectum and a close inspection of the anal canal was made. There are circumferential changes in the distal anal canal consistent with radiation. There are no masses within the anal canal there are internal hemorrhoid pedicles were which appeared to have been radiated. Multiple biopsies of the anal canal were performed with forceps. Specimen(s): other (Anal biopsies) Impression: -changes within the anal canal consistent with radiation. -no evidence of recurrent anal squamous cell carcinoma -radiation proctitis -mild anal stenosis Post-procedure Plan for aftercare: Repeat flexible sigmoidoscopy 6 months Disposition: same day surgery
[2023-05-11 11:19] VITALS: BP 116/78; PULSE 62; RESP 16; O2SAT 100
[2023-05-11 11:24] VITALS: BP 117/83; PULSE 67; RESP 20; O2SAT 98
[2023-05-11 11:30] VITALS: BP 121/66; PULSE 63; RESP 16; TEMP 36.1; O2SAT 99
== END 2023-05-11 11:35 | disposition home or self-care (01) ==
PROVIDERS: Referring Provider Surgery; Visit Provider Surgery
PROC: 0DJD8ZZ Inspection of Lower Intestinal Tract, Via Natural or Artificial Opening Endoscopic (ICD-10-PCS; CPT 45378; principal; 2023-05-11 10:45)
DX: Z12.11 Encounter for screening for malignant neoplasm of colon (principal); Z85.048 Personal history of other malignant neoplasm of rectum, rectosigmoid junction, and anus; K62.7 Radiation proctitis; K62.4 Stenosis of anus and rectum
CPT/HCPCS: 45331; J2704

== ENCOUNTER 2023-10-15 13:54 | Day surgery (SDC) | payer OTHER, SELFPAY ==
--- NOTE | 2023-10-15 | PATH_ITS ---
[facility] Accession Number: [id number] No. of containers..01 Tissue . 01 Material submitted: . skin - ANAL, BIOPSY . 01 Diagnosis: ANAL, BIOPSY: 1. Invasive squamous cell carcinoma, well-differentiated, arising in high-grade squamous intraepithelial lesion (AIN-3). 2. No lymphovascular or perineural invasion identified. 3. No glandular dysplasia identified. See comment. . Specimen Comments: Squamous cell carcinoma is present in one biopsy fragment. Invasive carcinoma is present as small nests of atypical squamous cells among strands of smooth muscle, and is present at the deep edge of the biopsy fragment. . These results were discussed with Dr. Farley by Dr. Berry on 10/22/2023 at 1015. This case has also been reviewed by Dr. Hernandez Odell, who concurs with the diagnosis. [facility] 10/22/2023 1028 Local . 01 Electronically signed: . Lazarus Berry MD, Pathologist NPI- [id number] . 01 Gross description: . ANAL: Received in formalin are 3 fragment(s) of broussard, soft tissue measuring 0.1 x 0.1 x 0.1 cm to 0.2 x 0.2 x 0.1 cm submitted entirely in 1 cassette(s) /VIOLET 10/22/2023 1028 Local . 01 Pathologist provided ICD-10: C21.0 . 01 CPT . 461564 Specimen Comment: A courtesy copy of this report has been sent to [phone] Performed at: 01 [facility] [address] [place] [address] [address] [facility], [place], [place] [id number] MD Lazarus Berry MD Phone: [phone]
[2023-10-15 14:13] VITALS: BP 138/85; PULSE 89; RESP 16; TEMP 37.1; O2SAT 98
[2023-10-15] MEDS: LACTATED RINGERS 1,000 ML 42 ML IV (14:31)
--- NOTE | 2023-10-15 15:33 | P.HP_ITS ---
History of Present Illness History of Present Illness Date Patient Seen: 10/15/23 Time Patient Seen: 15:34 Chief complaint: Exam Under Anesthesia Rectal Narrative: Naye Kevin is a 53-year-old woman who has history of anal squamous cell carcinoma. She completed chemo and radiation therapy 2022 and did well. On recent surveillance imaging CT and PET there is concern for a possible recurrence. She is here today for examination under anesthesia with biopsy. [facility] Medical History Hypercalcemia PFO (patent foramen ovale) Headache GERD (gastroesophageal reflux disease) History of blood clots Anxiety Hypothyroid CVA (cerebral vascular accident) Fatigue Insomnia Snoring Obstructive sleep apnea of adult Surgical History Hx of parathyroidectomy History of surgery (05/15/22) H/O LEEP S/P patent foramen ovale closure Family History Unknown Cancer of kidney Grandmother Breast cancer Social History household members: significant other Smoking Status: Former smoker alcohol intake: current substance use type: does not use Meds Home Medications and Allergies Home Medications Medication Instructions Recorded Confirmed Type levonorgestrel 21 mcg/24 hours (8 1 device intrauterine DAILY 04/22/22 05/11/23 History yrs) 52 mg intrauterine device (Mirena) levothyroxine 175 mcg tablet 175 mcg PO DAILY 04/28/22 10/15/23 History acetaminophen 325 mg capsule 650 mg (2 x 325 mg) PO QID PRN 05/15/22 10/15/23 Rx (Tylenol) pain #60 caps Allergies Allergy/AdvReac Type Severity Reaction Status Date / Time No Known Drug Allergies Allergy Verified 10/15/23 14:07 Exam Vital Signs (past 8 hours): - 10/15/23 14:13 Temperature 98.7 F Pulse Rate 89 Respiratory Rate 16 Blood Pressure 138/85 Pulse Oximetry 98 Oxygen Delivery Method Room Air Oxygen Delivery Method Room Air Narrative Exam Narrative: GENERAL: A well nourished, well developed adult woman, resting comfortably, in no acute distress. HEENT: Normocephalic, atraumatic. No scleral icterus CHEST: Rising symmetrically. No audible wheezes CARDIOVASCULAR: Warm and well perfused. Regular rate ABDOMEN: Soft, non-tender, non-distended EXTREMITIES: Normal tone and without edema. NEUROLOGIC: Moving all extremities spontaneously. No gross motor deficits. Assessment & Plan Assessment and plan (1) Anal squamous cell carcinoma: Status: Chronic Assessment & Plan narrative: 53-year-old woman history of anal squamous cell carcinoma status post treatment with a possible recurrence. She is here today for examination under anesthesia with possible biopsy. Overview of the procedure discussed. Questions answered she is in agreement with this plan provides her consent to proceed.
[2023-10-15 16:06] VITALS: BP 94/59; PULSE 72; RESP 20; TEMP 36.2; O2SAT 98
[2023-10-15 16:11] VITALS: BP 91/61; PULSE 70; RESP 12; O2SAT 96
[2023-10-15 16:16] VITALS: BP 91/61; PULSE 73; RESP 21; O2SAT 96
[2023-10-15 16:17] VITALS: BP 116/78; PULSE 73; RESP 18; O2SAT 97
--- NOTE | 2023-10-15 16:19 | PM.OP.1 ---
Operative Date/Time/Diagnoses Date of procedure: 10/15/23 Time of procedure: 16:19 Pre-op diagnosis: History of anal squamous cell carcinoma Post-op diagnosis: same Procedure & Clinicians Procedure: Rectal examination under anesthesia Same procedure as scheduled: Yes Indications: Naye Kevin is a 53-year-old woman history of anal squamous cell carcinoma status post chemoradiation spring 2022. Surveillance imaging demonstrates uptake within the anus concerning for recurrence and she is here for an examination under anesthesia. Surgeon: Tani Farley Click Yes if Unassisted: Yes Anesthesia Type: MAC +/- Operative Notes Findings: Thickened friable approximately 1 cm area within the anal canal adjacent to the posterior wall of the vagina Specimen(s): other (Anal tissue) Estimated Blood Loss (mL): 20 Procedure in detail: Patient was brought to the operating room and placed in the left lateral decubitus position. Sedation was administered by anesthesia. A time-out was performed. External examination demonstrates the effects of prior radiation but otherwise unremarkable. Digital rectal exam demonstrates a somewhat stenotic anus however it is notable for thickening of the anal canal as it abuts the posterior wall of the vagina approximately 12 o'clock position in lithotomy. A EGD scope was then inserted into the rectum which confirmed these findings. While all of the anal canal is been affected by the radiation this particular area does appear to be different than the surrounding tissue. Multiple biopsies of the anal tissue were performed forceps. She tolerated the procedure well was transferred to recovery in stable condition. Complications: none Post-operative Condition: stable Disposition: same day surgery
== END 2023-10-15 16:29 | disposition home or self-care (01) ==
PROVIDERS: Referring Provider Surgery; Visit Provider Surgery
PROC: (CPT 45990; principal; 2023-10-15 15:45)
DX: C21.0 Malignant neoplasm of anus, unspecified (principal)
CPT/HCPCS: 45305; J2405; J2704; J3010

== ENCOUNTER 2024-06-20 12:22 | Day surgery (SDC) | payer OTHER, SELFPAY ==
[2024-06-13 14:21] VITALS: BMI 28.5
--- NOTE | 2024-06-20 | DI.RAD.S_ITS ---
PROCEDURE: XR CHEST 1V INDICATIONS: port TECHNIQUE: One view of the chest was acquired. COMPARISON: [facility], CT, CT CHEST ABDOMEN PELVIS WITH CONTRAST, 09/03/2023, 10:27. [facility], CR, XR CHEST 1V, 05/15/2022, 18:02. FINDINGS: Surgical changes and devices: Right chest wall Port-A-Cath with tip projecting over the mid SVC. Cardiac septal occlusion device. Lungs and pleura: Lungs are clear. No pleural effusions or pneumothorax. Mediastinum: Mediastinal contours appear normal. Heart size is normal. Bones and chest wall: No suspicious bony lesions. Overlying soft tissues appear unremarkable. IMPRESSION: No acute cardiopulmonary abnormality is seen. Dictated by: Yocasta Shelley MD, PhD on 06/20/2024 at 14:46 Approved by: Yocasta Shelley MD, PhD on 06/20/2024 at 14:47
[2024-06-20 12:45] VITALS: BMI 27.4
[2024-06-20 12:55] VITALS: BP 138/88; PULSE 82; RESP 17; TEMP 37.1; O2SAT 96
[2024-06-20] MEDS: LACTATED RINGERS 1,000 ML 42 ML IV ×2 (12:59→14:08)
[2024-06-20] MEDS: ACETAMINOPHEN 325 MG TABLET 975 MG PO (12:59)
--- NOTE | 2024-06-20 13:01 | P.HP_ITS ---
History of Present Illness History of Present Illness Date Patient Seen: 06/20/24 Time Patient Seen: 13:01 Chief complaint: Port-A-Cath Insertion Narrative: Naye is a 53 year old woman with recurrent anal squamous cell carcinoma in need of a port for chemtherapy. She did have a port in 2022 which was subsequently removed. She is due for chemo tomorrow. [facility] Medical History (Updated 06/13/24 @ 14:50 by Brooke Rodriguez RN) Hyperthyroidism Hypercalcemia PFO (patent foramen ovale) Headache GERD (gastroesophageal reflux disease) History of blood clots Anxiety Hypothyroid CVA (cerebral vascular accident) Fatigue Insomnia Snoring Obstructive sleep apnea of adult Surgical History (Updated 06/13/24 @ 14:48 by Brooke Rodriguez RN) Hx of colonoscopy (05/11/23) History of removal of Port-a-Cath (10/02/22) History of biopsy (10/15/23) Hx of parathyroidectomy History of surgery (05/15/22) H/O LEEP S/P patent foramen ovale closure Family History Unknown Cancer of kidney Grandmother Breast cancer Social History household members: significant other Smoking Status: Former smoker alcohol intake: current substance use type: does not use Meds Home Medications and Allergies Home Medications Medication Instructions Recorded Confirmed Type levonorgestrel 21 mcg/24 hr (up to 1 device intrauterine DAILY 04/22/22 10/27/23 History 8 years) 52 mg intrauterine device (Mirena) levothyroxine 175 mcg tablet 175 mcg PO DAILY 04/28/22 06/20/24 History acetaminophen 325 mg capsule 650 mg (2 x 325 mg) PO QID PRN 05/15/22 06/20/24 Rx (Tylenol) pain #60 caps methocarbamol 750 mg tablet 750 mg PO 3XD 06/20/24 06/20/24 History oxycodone 5 mg tablet 5 mg PO Q6H PRN pain 06/20/24 06/20/24 History Allergies Allergy/AdvReac Type Severity Reaction Status Date / Time No Known Drug Allergies Allergy Verified 06/20/24 12:41 Exam Vital Signs (past 8 hours): - 06/20/24 12:55 Temperature 98.7 F Pulse Rate 82 Respiratory Rate 17 Blood Pressure 138/88 Pulse Oximetry 96 Oxygen Delivery Method Room Air Oxygen Delivery Method Room Air Const General: healthy appearing Resp Effort & Inspection: normal respiratory effort Assessment & Plan Assessment and plan (1) Anal squamous cell carcinoma: Status: Chronic Plan We will proceed with a tunnelled port for chemotherapy. Time-Based Coding :: [TOTAL MINUTES] spent with patient and on the chart (including review of chart, obtaining history, exam, reviewing outside data, placing orders, documenting exam and treatment plan, and counseling patient) on [DATE].
[2024-06-20] MEDS: CEFAZOLIN 2 GM/100 ML PREMIX 100 ML IV (13:20)
--- NOTE | 2024-06-20 13:39 | SUR.OPER ---
Supine on padded OR bed, head on gel doughnut, rightarms padded and tucked at side,left arm on padded arm board at less that 90degree abduction legs uncrossed, safety belt at thigh, tape over blanket over lower legs .
[2024-06-20] MEDS: LIDOCAINE 1% W/EPI 20ML 20 ML INJ (13:46)
[2024-06-20] MEDS: HEPARIN 5,000 UNIT/ML VIAL 5000 UNIT IV (13:46)
--- NOTE | 2024-06-20 14:15 | P.OP_ITS ---
Operative Date/Time/Diagnoses Date of procedure: 06/20/24 Time of procedure: 14:15 Pre-op diagnosis: Anal squamous cell carcinoma Post-op diagnosis: same Procedure & Clinicians Procedure: Port-A-Cath Same procedure as scheduled: Yes Surgeon: Oscar Stephenson Anesthesia Type: General Operative Notes Procedure in detail: The patient was brought to the operating room, placed on the table in the supine position with the arms tucked. Ancef was administered. Anesthesia was induced via LMA. A time-out was performed. The right chest and neck were prepped and draped in the usual fashion. An ultrasound was used to identify the right internal jugular vein. The vein was noted to be patent. An image was saved and printed and placed in the chart. The right internal jugular vein was accessed via the Seldinger technique under ultrasound guidance. The guidewire was inserted into the superior vena cava. C-arm was used to confirm proper position of the guidewire in the superior vena cava and no ectopy was noted. The needle was removed and the wire was clamped to the drape. Next, a port pocket was created just inferior to the medial clavicle through the old scar using a 15 blade scalpel. Dissection was carried down to the pectoral fascia. A subcutaneous pocket was created using a combination of cautery and blunt dissection. Next, the port which was pre-primed with injectable saline, was secured to the fascia with 3-0 PDS sutures left untied and clamped. The neck incision was extended with an 11 blade scalpel to approximately 5 mm. The dilator and peel-away sheath were inserted over the wire without resistance. The catheter was passed from the neck incision to the chest incision in the subcutaneous tissue using the tunnelling device. The wire and dilator were then removed and the catheter inserted through the peel-away sheath to deliver it in to the superior vena cava. The depth of the device was checked using the C-arm and the tip of the device was noted to be in the distal superior vena cava. The exterior portion of the catheter was then trimmed and attached to the port using the strain relief collar. The port was then tucked into the subcutaneous pocket and the sutures were tied to secure the device. The port was then accessed u sing the Miller needle and it was noted that the device hadley and flushed easily without resistance. Approximately 4 mL of heparinized saline were injected into the device. The skin incisions were closed with 3-0 Vicryl and 4-0 Monocryl. Steri-Strips were applied patient was awakened and brought to recovery room EBL: 5 mL Ultrasound: The right internal jugular vein was patent. The right carotid artery was visualized adjacent to the vein. Venipuncture was visualized in real-time using the ultrasound. Fluoroscopy: The device was positioned appropriately with the distal end of the catheter near the atriocaval junction. There were no kinks in the catheter. Post-operative Condition: stable Disposition: PACU
[2024-06-20 14:16] VITALS: BP 102/66; PULSE 92; RESP 18; TEMP 36.6; O2SAT 97
[2024-06-20 14:21] VITALS: BP 107/71; PULSE 91; RESP 18; O2SAT 95
[2024-06-20] MEDS: SCOPOLAMINE 1 PATCH TOP (14:24)
[2024-06-20 14:26] VITALS: BP 107/68; PULSE 83; RESP 12; TEMP 36.4; O2SAT 98
[2024-06-20] MEDS: OXYCODONE IR 5 MG TABLET PO (14:33)
[2024-06-20 14:35] VITALS: BP 107/68; PULSE 87; RESP 12; O2SAT 97
== END 2024-06-20 15:00 | disposition home or self-care (01) ==
PROVIDERS: Referring Provider Surgery; Visit Provider Surgery
PROC: (CPT 36561; principal; 2024-06-20 13:45)
DX: C21.0 Malignant neoplasm of anus, unspecified (principal); Z45.2 Encounter for adjustment and management of vascular access device; E03.9 Hypothyroidism, unspecified; Z87.891 Personal history of nicotine dependence; Z86.73 Personal history of transient ischemic attack (TIA), and cerebral infarction without residual deficits
CPT/HCPCS: 36561; 71045; C1788; J0690; J1100; J1171; J1644; J2250; J2405; J2704; J3010